=== PATIENT | female | born 1990 | race Caucasian/White ===

== ENCOUNTER 2021-01-31 12:20 | Emergency (ER) | payer BC, OTHER ==
[2021-01-31 12:53] LABS: HEMOGLOBIN 15.3 gm/dl (12.3-15.3); RED BLOOD COUNT 5.04 M/UL (4.00-5.10); WHITE BLOOD COUNT 7.3 K/UL (4.5-11.0)
[2021-01-31 13:17] LABS: BUN/CREATININE RATIO 8 (0-10)
[2021-01-31] MEDS ORDERED: ALLERGY EYE DRO10 M1 EYEBOTH (15:14)
== END 2021-01-31 15:54 | disposition home or self-care (01) ==
LOC: ER1 12:20
PROVIDERS: Physician Assistant
DX: R07.9 Chest pain, unspecified (principal); Z20.822 Contact with and (suspected) exposure to COVID-19
CPT/HCPCS: 71045; 80053; 82550; 82553; 83874; 84484; 85025; 85379; 93005; 99285; Q9967; U0002